=== PATIENT | male | born 1970 | race Hispanic/Latino ===

== ENCOUNTER 2018-11-15 05:55 | Emergency (ER) | payer OTHER ==
[~2018-11-15] VITALS: Ht 167.6 cm; Wt 100.0 kg
[~2018-11-15 05:55] MED LIST: NO HOME MEDS; TRAMADOL HCL50 MG OR
[2018-11-15 06:26] LABS: HEMATOCRIT 45.4 % (39.0-50.0); HEMOGLOBIN 15.4 g/dl (14.0-18.0); IMMATURE GRANULOCYTES 0.5 % (0.0-5.0); MEAN CELL VOLUME 89.2 fL CALC (80.0-100.0); MEAN CORPUSCULAR HGB 30.3 pG CALC (26.0-32.0); MEAN CORPUSCULAR HGB CONC 33.9 g/L CALC (32.0-36.0); NEUT# 2.96 thou/uL (1.82-7.42); RED BLOOD COUNT 5.09 mill/uL (4.70-6.10); RED CELL DISTRI WIDTH 13.3 % (11.5-15.5)
[2018-11-15 06:40] LABS: ALBUMIN 4.5 g/dL (3.2-5.0); ALKALINE PHOSPHATASE 95 u/l (38-126); ANION GAP 16 (6-22 (CALC)); BILIRUBIN, TOTAL 0.8 mg/dL (0.0-1.4); BUN 13 mg/dL (9-20); BUN/CREATININE RATIO 14 (12-20 (CALC)); CARBON DIOXIDE 24 mmol/l (22-30); CHLORIDE 105 mmol/l (95-108); CREATININE 0.9 mg/dL (0.7-1.3); GFR > 60 ML/MIN (>=60 (CALC)); GFR FOR AFR.AMER. > 60 ML/MIN (>=60 (CALC)); SGOT/AST 53 u/l (17-59); SODIUM 140 mmol/l (137-146); TOTAL PROTEIN 7.9 g/dL (6.3-8.2)
[2018-11-15 06:45] LABS: POTASSIUM 5.1 mmol/l (3.5-5.1)
[2018-11-15 08:10] LABS: URINE BILIRUBIN - DIPSTICK NEGATIVE (NEGATIVE); URINE BLOOD DIPSTICK LARGE (NEGATIVE); URINE COLOR YELLOW; URINE GLUCOSE - DIPSTICK NEGATIVE (NEGATIVE); URINE KETONE NEGATIVE (NEGATIVE); URINE LEUK ESTERASE NEGATIVE (NEGATIVE); URINE NITRITE - DIPSTICK NEGATIVE (Negative); URINE PROTEIN - DIPSTICK NEGATIVE (NEG-TRACE); URINE UROBILINOGEN - DIPSTICK 0.2 E.U./dL (0.2)
[2018-11-15 08:17] LABS: URINE WBC 0-2 WBC/hpf (0-5)
[2018-11-15] MEDS ORDERED: HYDROCO/APAP1 TA9 PO (08:24)
[2018-11-15] MEDS ORDERED: CEPHALEXIN500 M1 PO (08:24)
[2018-11-15] MEDS ORDERED: ONDANSETRON4 MG PO (08:24)
[2018-11-15 09:01] VITALS: BP 145/77
== END 2018-11-15 09:01 | disposition home or self-care (01) | DRG 694 ==
LOC: ED 05:55
PROVIDERS: Family Medicine
DX: N13.2 Hydronephrosis with renal and ureteral calculous obstruction (principal); Z87.442 Personal history of urinary calculi

== ENCOUNTER 2020-10-28 20:37 | Emergency (ER) | payer OTHER ==
[~2020-10-28] VITALS: Ht 167.6 cm; Wt 90.0 kg
[~2020-10-28 20:37] MED LIST changes: +CEPHALEXIN500 M1 PO; +HYDROCO/APAP1 TA9 PO; +ONDANSETRON4 MG PO
[2020-10-29 00:10] LABS: HEMATOCRIT 47.6 % (39.0-50.0); HEMOGLOBIN 15.9 g/dl (14.0-18.0); IMMATURE GRANULOCYTES 0.2 % (0.0-5.0); MEAN CORPUSCULAR HGB 30.1 pG CALC (26.0-32.0); MEAN CORPUSCULAR HGB CONC 33.4 g/dL CAL (32.0-36.0); NEUT# 3.42 thou/uL (1.82-7.42); RED BLOOD COUNT 5.29 mill/uL (4.70-6.10); RED CELL DISTRI WIDTH 12.4 % (11.5-15.5)
[2020-10-29 00:26] LABS: D-DIMER 0.54 mg/L (0.19-0.60)
[2020-10-29 00:29] LABS: ALBUMIN 3.9 g/dL (3.2-5.0); ALKALINE PHOSPHATASE 72 u/l (38-126); BUN 13 mg/dL (9-20); BUN/CREATININE RATIO 16 (12-20 (CALC)); CARBON DIOXIDE 27 mmol/l (22-30); CHLORIDE 95 mmol/l (95-108); CREATININE 0.9 mg/dL (0.7-1.3); GFR > 60 ML/MIN (>=60 (CALC)); GFR FOR AFR.AMER. > 60 ML/MIN (>=60 (CALC)); POTASSIUM 4.7 mmol/l (3.5-5.1); SGOT/AST 42 u/l (17-59); TOTAL PROTEIN 7.3 g/dL (6.3-8.2)
[2020-10-29 00:31] LABS: ANION GAP 13 (6-22 (CALC)); BILIRUBIN, TOTAL 0.3 mg/dL (0.0-1.4); SODIUM 130 mmol/l (137-146)
[2020-10-29 00:34] LABS: ACT PARTIAL THROMBO TIME 30.8 SECONDS (20.0-32.5); INTERNATIONAL NORMALIZED RATIO 1.1 RATIO (0.7-1.3); PROTHROMBIN TIME 11.3 SECONDS (9.0-12.5)
[2020-10-29 00:43] LABS: MYOGLOBIN 28 ng/mL (0 - 121)
[2020-10-29 02:42] VITALS: BP 112/70
== END 2020-10-29 04:28 | disposition home or self-care (01) | DRG 179 ==
LOC: ED 20:37
PROVIDERS: Family Medicine
DX: U07.1 COVID-19 (principal)

== ENCOUNTER 2020-10-30 09:12 | Inpatient (IN) | payer OTHER ==
[~2020-10-30] VITALS: Ht 167.6 cm; Wt 93.0 kg
--- NOTE | 2020-10-30 09:15 | NUR ---
TO ROOM VIA WHEELCHAIR
[2020-10-30 10:15] LABS: HEMATOCRIT 47.5 % (39.0-50.0); HEMOGLOBIN 15.9 g/dl (14.0-18.0); IMMATURE GRANULOCYTES 0.2 % (0.0-5.0); MEAN CELL VOLUME 89.8 fL CALC (80.0-100.0); MEAN CORPUSCULAR HGB 30.1 pG CALC (26.0-32.0); MEAN CORPUSCULAR HGB CONC 33.5 g/dL CAL (32.0-36.0); NEUT# 3.83 thou/uL (1.82-7.42); RED BLOOD COUNT 5.29 mill/uL (4.70-6.10); RED CELL DISTRI WIDTH 12.7 % (11.5-15.5)
[2020-10-30 10:34] LABS: ALBUMIN 3.7 g/dL (3.2-5.0); ALKALINE PHOSPHATASE 79 u/l (38-126); ANION GAP 11 (6-22 (CALC)); BILIRUBIN, TOTAL 0.3 mg/dL (0.0-1.4); BUN 18 mg/dL (9-20); BUN/CREATININE RATIO 20 (12-20 (CALC)); CARBON DIOXIDE 28 mmol/l (22-30); CHLORIDE 96 mmol/l (95-108); CREATININE 0.9 mg/dL (0.7-1.3); GFR > 60 ML/MIN (>=60 (CALC)); GFR FOR AFR.AMER. > 60 ML/MIN (>=60 (CALC)); POTASSIUM 4.2 mmol/l (3.5-5.1); SGOT/AST 45 u/l (17-59); SODIUM 131 mmol/l (137-146); TOTAL PROTEIN 7.1 g/dL (6.3-8.2)
--- NOTE | 2020-10-30 12:18 | NUR ---
MD AT BEDSIDE TO DISCUSS RESULTS AND POC.
--- NOTE | 2020-10-30 12:50 | NUR ---
RESTING QUIETLY, DENIES NEEDS AT THIS TIME.
--- NOTE | 2020-10-30 15:13 | NUR ---
REPORT GIVEN TO SKIP MARTINEZ
[2020-10-30 18:00] VITALS: BP 117/67
[2020-10-30 19:00] VITALS: BP 142/67
[2020-10-30 20:00] VITALS: BP 113/70
[2020-10-30 21:00] VITALS: BP 106/67
--- NOTE | 2020-10-30 21:45 | NUR ---
PT ADMITTED TO MEDICAL SURGICAL ER OVERFLOW. ASSESSMENTS COMPLETED, PLEASE SEE DOCUMENTATION. BREATHING EVEN AND UNLABORED. NO COMPLAINTS VOICED AT THIS TIME. SAFETY PRECAUTIONS IN PLACE, BED IN LOW POSITION, CALL LIGHT WITHIN REACH. WILL MONITOR
[2020-10-30 22:00] VITALS: BP 101/64
[2020-10-30 22:24] VITALS: BP 101/64
--- NOTE | 2020-10-30 22:50 | NUR ---
PT RESTING IN BED AT THIS TIME. BREATHING EVEN AND UNLABORED. ADMISSION ASSESSMENTS TO MEDICAL SURGICAL OVERFLOW COMPLETED. PLEASE SEE DOCUMENATTION. NO COMPLAINTS VOICED AT THIS TIME. PT DENIES PAIN. SAFETY PRECAUTIONS IN PLACE, BED IN LOW POSITION AND CALL LIGHT WITHIN REACH. PT TO BE MOVED TO THE MED SURG UNIT ONCE THERE IS AN AVAILABLE BED. WILL CONTINUE TO MONITOR
[2020-10-31] VITALS (10 sets, daily range): BP systolic 12–123; BP diastolic 51–71
--- NOTE | 2020-10-31 06:22 | NUR ---
ABG RESULTS REVIEWED AND DISCUSSED WITH Rachid TOM ARTS AND CRAFTS TEACHER. PT'S PO2 AND SPO2 LOW. NO RESPIRATORY DISTRESS. OXYGEN INCREASED TO 15L/MIN VIA HIGH FLOW NC. RESULTS IN SP02 AT 92%.
--- NOTE | 2020-10-31 07:45 | NUR ---
PATIENT LAYING IN BED AT THIS TIME. POTABLE WATER TREATMENT OPERATOR DONE AT THIS TIME SEE INTEVENTIONS. PATIENT IS ON 15L HIGH FLOW AND SPO2 IS 90%. PATIENT DENIES ANY NEEDS AT THIS TIME. SIDERRAILS ARE UP CALL LIGHT WITHIN REACH. TELE ON AND BEING MONITORED BY ED. LUNG FINNEY ARE DIMINISHED IN MIDDLE AND LOWER FINNEY. SIDERAILS ARE UP CALL LIGHT WITHIN REACH.
[2020-10-31 08:11] LABS: HEMATOCRIT 46.8 % (39.0-50.0); HEMOGLOBIN 15.4 g/dl (14.0-18.0); IMMATURE GRANULOCYTES 0.3 % (0.0-5.0); MEAN CELL VOLUME 91.6 fL CALC (80.0-100.0); MEAN CORPUSCULAR HGB 30.1 pG CALC (26.0-32.0); MEAN CORPUSCULAR HGB CONC 32.9 g/dL CAL (32.0-36.0); NEUT# 2.03 thou/uL (1.82-7.42); RED BLOOD COUNT 5.11 mill/uL (4.70-6.10); RED CELL DISTRI WIDTH 12.6 % (11.5-15.5)
[2020-10-31 09:02] LABS: ALBUMIN 3.3 g/dL (3.2-5.0); ALKALINE PHOSPHATASE 72 u/l (38-126); ANION GAP 13 (6-22 (CALC)); BILIRUBIN, TOTAL 0.3 mg/dL (0.0-1.4); BUN 23 mg/dL (9-20); BUN/CREATININE RATIO 33 (12-20 (CALC)); CARBON DIOXIDE 25 mmol/l (22-30); CHLORIDE 100 mmol/l (95-108); CREATININE 0.7 mg/dL (0.7-1.3); GFR > 60 ML/MIN (>=60 (CALC)); GFR FOR AFR.AMER. > 60 ML/MIN (>=60 (CALC)); POTASSIUM 4.7 mmol/l (3.5-5.1); SGOT/AST 39 u/l (17-59); SODIUM 134 mmol/l (137-146); TOTAL PROTEIN 6.3 g/dL (6.3-8.2)
[2020-10-31 09:29] LABS: C-REACTIVE PROTEIN 14.1 mg/dL (0-0.9)
--- NOTE | 2020-10-31 09:48 | NUR ---
PT CONSENTED TO PNEUMONIA [facility], BUT DOES NOT MEET CRITERIA TO RECEIVE BELOW AGE 65 BASED ON COMORBIDITIES.
--- NOTE | 2020-10-31 12:05 | NUR ---
PATIENT RESTING IN BED AT THIS TIME. SIDERAILS ARE UP CALL LIGHT WITHIN REACH. PATIENT DENIES ANY PAIN AT THIS TIME. PATIENT REMAINS ON 02 AT 15L HI-FLOW PATIENTS SPO2 IS 91% AT THIS TIME. TELE MONITOR ON AND MONITORED BY ED. SIDERAILS ARE UP CALL LIGHT WITHIN REACH.
--- NOTE | 2020-10-31 15:51 | NUR ---
PATIENT IN BED DENIES ANY PAIN. 02 ON AT 15LITERS HI-FLOW AND SPO2 IS 91% AT THIS TIME. SIDERAILS ARE UP CALL LIGHT IS WITHIN REACH TELE ON AND BEING MONITORED BY ED. PATIENT WILL CONTINUE TO BE MONITORED.
--- NOTE | 2020-10-31 19:11 | NUR ---
RECEIVED REPORT FROM DAY SHIFT RN. IN ROOM INTRODUCED SELF TO PT. NO C/O.
--- NOTE | 2020-10-31 19:24 | NUR ---
RICARDO CALLED TO SHEBA SKINNER.
--- NOTE | 2020-10-31 19:25 | NUR ---
PT. TAKEN TO [facility] VIA W/C.
--- NOTE | 2020-10-31 19:35 | NUR ---
PT. TAKEN TO MS FLOOR, NO C/O.
--- NOTE | 2020-10-31 19:35 | NUR ---
PT ARRIVES TO UNIT VIA WC, ACCOMPANIED BY CARMINA SKINNER. ADMITTED TO ROOM 265.
--- NOTE | 2020-10-31 21:25 | NUR ---
02 15L/MIN VIA HIGH FLOW NC. SP02 93% AT REST. SPO2 DROPS TO 89% WITH CONVERSATION. RESPIRATIONS REGULAR AND UNLABORED AT REST. SOB WITH MINIMAL EXERTION. NON-PRODUCTIVE COUGH. PT AGREES TO REPORT RESPIRATORY DISTRESS IMMEDIATELY. PULMONARY HYGIENE EDUCATION REVIEWED. PRONING ENCOURAGED. SEE E-MAR FOR MEDICATION ADMINISTRATION DETAILS. MEDICATION EDUCATION PROVIDED. L-AC #20 G PATENT AND SALINE LOCKED. PT DENIES FURTHER NEEDS AT THIS TIME. PERSONAL ITEMS AND CALL BONILLA WITHIN REACH. AGREES TO CALL PRN. BED LOCKED IN LOW POSITION WITH BEDRAILS UP X2. COVID-19 ISOLATION MAINTAINED.
[2020-11-01] VITALS (7 sets, daily range): BP systolic 110–120; BP diastolic 53–73
--- NOTE | 2020-11-01 00:35 | NUR ---
PT AWAKE AND RESTING IN BED SEMIFOWLERS. RESPIRATIONS REGULAR/UNLABORED. SPO2 92%. DENIES NEEDS AT THIS TIME. CALL BONILLA WITHIN REACH, AGREES TO CALL PRN.
--- NOTE | 2020-11-01 04:45 | NUR ---
Fer KELSEY FIELD HANDYMAN REPORTS PTS SPO2 DOES NOT READ >93%. SP02 SPOT CHECK IS 87%, PT DOES NOT FEEL SOB OR IN DISTRESS AT REST. REQUESTED PT PRONE. PT AGREES. PT ASSISTED TO PRONE. SPO2 SLOWLY INCREASES TO 93% AND MAINTAINS BETWEEN 92-93%. PT AGREES TO REMAIN PRONE FOR LONG HE CAN TOLERATE. CALL BONILLA REMAINS WITHIN REACH. AGREES TO CALL PRN. DISCUSSED CASE WITH Nelson RICO PLANT SPRAYER.
[2020-11-01 06:26] LABS: HEMATOCRIT 45.8 % (39.0-50.0); HEMOGLOBIN 15.4 g/dl (14.0-18.0); IMMATURE GRANULOCYTES 0.2 % (0.0-5.0); MEAN CELL VOLUME 90.5 fL CALC (80.0-100.0); MEAN CORPUSCULAR HGB 30.4 pG CALC (26.0-32.0); MEAN CORPUSCULAR HGB CONC 33.6 g/dL CAL (32.0-36.0); NEUT# 7.69 thou/uL (1.82-7.42); RED BLOOD COUNT 5.06 mill/uL (4.70-6.10); RED CELL DISTRI WIDTH 12.5 % (11.5-15.5)
[2020-11-01 06:51] LABS: ALKALINE PHOSPHATASE 68 u/l (38-126); ANION GAP 13 (6-22 (CALC)); BILIRUBIN, TOTAL 0.2 mg/dL (0.0-1.4); CARBON DIOXIDE 25 mmol/l (22-30); CHLORIDE 103 mmol/l (95-108); CREATININE 0.7 mg/dL (0.7-1.3); GFR > 60 ML/MIN (>=60 (CALC)); GFR FOR AFR.AMER. > 60 ML/MIN (>=60 (CALC)); POTASSIUM 4.7 mmol/l (3.5-5.1); SGOT/AST 36 u/l (17-59); SODIUM 135 mmol/l (137-146); TOTAL PROTEIN 5.8 g/dL (6.3-8.2)
[2020-11-01 07:07] LABS: BUN 25 mg/dL (9-20); BUN/CREATININE RATIO 36 (12-20 (CALC))
--- NOTE | 2020-11-01 07:14 | NUR ---
REPORT REC FROM Lia GARRIDO RN
--- NOTE | 2020-11-01 08:27 | NUR ---
PT A&O X4. UPON ENTERING ROOM, O2 VIA NC HF @15L IN PLACE CURRENTLY SUSTAINING 87-88%. HUMIDIFICATION ADDED TO HF O2. PT ENCOURAGED TO PRONE. PT PRONING AT THIS TIME, O2 NOW 90%, Misbah GONZALEZ APRN NOTIFIED, O2 TO BE CLOSELY MONITORED. PT APPEARING SLIGHTLY ANXIOUS; VERBAL QUES GIVEN; PT WELL RECEPTIVE TO QUES. CLEAR/DIMINISHED BREATH SOUNDS UPON AUSCULTATION. ACTIVE BOWEL SOUNDS X4 QUADRANTS. #20G LAC HEALTHY AND PATENT. EMAIL OPERATIONS MANAGER IN PLACE. ASSESSMENT COMPLETED. DISCUSSED POC. CALL LIGHT WITHIN REACH, ISOLATION PREACUTIONS IN PLACE; PT EDUCATED ON THE NEED FOR THESE PRECAUTIONS.
--- NOTE | 2020-11-01 09:00 | NUR ---
IS DEVICE GIVEN TO PT. PT EDUCATED ON THE PROPER USE OF DEVICE. O2 VIA NC HF @15L, O2 NOW 93% NOT IN PRONE POSITION. PT ENCOURAGED TO USE DEVICE Q1 HOUR WHILE AWAKE X10 REPITITIONS. PT PROPERLY USING IS DEVICE CURRENTLY ACHIEVING 750 ML, GOAL SET AT 1000 ML. NO OTHER NEEDS AT THIS TIME.
--- NOTE | 2020-11-01 12:20 | NUR ---
PT SITTING IN BED, O2 VIA NC HF @15L REMAINS. O2 SUSTAINING 92%. CALL LIGHT WITHIN REACH.
--- NOTE | 2020-11-01 18:03 | NUR ---
PT SITTING IN BED EATING DINNER. NO OTHER NEEDS AT THIS TIME. CALL LIGHT WITHIN REACH.
[2020-11-02] VITALS (9 sets, daily range): BP systolic 95–140; BP diastolic 53–84
--- NOTE | 2020-11-02 03:43 | NUR ---
PATIENT AWAKE AND ALERT NO CONCERNS OR CONCERNS AT THIS TIME
[2020-11-02 06:17] LABS: HEMATOCRIT 46.6 % (39.0-50.0); HEMOGLOBIN 15.3 g/dl (14.0-18.0); IMMATURE GRANULOCYTES 0.8 % (0.0-5.0); MEAN CELL VOLUME 92.3 fL CALC (80.0-100.0); MEAN CORPUSCULAR HGB 30.3 pG CALC (26.0-32.0); MEAN CORPUSCULAR HGB CONC 32.8 g/dL CAL (32.0-36.0); NEUT# 10.65 thou/uL (1.82-7.42); RED BLOOD COUNT 5.05 mill/uL (4.70-6.10); RED CELL DISTRI WIDTH 12.7 % (11.5-15.5)
--- NOTE | 2020-11-02 06:45 | NUR ---
REPORT RECEIVED FROM ADRYAN SKINNER. CARE ASSUMED.
[2020-11-02 07:02] LABS: ALBUMIN 3.1 g/dL (3.2-5.0); ALKALINE PHOSPHATASE 65 u/l (38-126); ANION GAP 12 (6-22 (CALC)); BUN 20 mg/dL (9-20); BUN/CREATININE RATIO 25 (12-20 (CALC)); C-REACTIVE PROTEIN 3.4 mg/dL (0-0.9); CARBON DIOXIDE 26 mmol/l (22-30); CHLORIDE 105 mmol/l (95-108); CREATININE 0.8 mg/dL (0.7-1.3); GFR > 60 ML/MIN (>=60 (CALC)); GFR FOR AFR.AMER. > 60 ML/MIN (>=60 (CALC)); POTASSIUM 4.9 mmol/l (3.5-5.1); SGOT/AST 37 u/l (17-59); SODIUM 138 mmol/l (137-146); TOTAL PROTEIN 5.9 g/dL (6.3-8.2)
[2020-11-02 07:05] LABS: BILIRUBIN, TOTAL 0.3 mg/dL (0.0-1.4)
--- NOTE | 2020-11-02 07:30 | NUR ---
PATIENT RESTING IN BED IN BED WATCHING TV. PT IS ALERT AND ORIENTED X3. SHIFT ASSESSMENT COMPLETED AT THIS TIME. IV PATENT X1. O2 SATS 82%. PATIENT PRONED AT THIS TIME. O2 SATS INCREASED TO 92-93%. CALL LIGHT IN REACH. Misbah GONZALEZ APRN NOTIFIED OF SATS.
--- NOTE | 2020-11-02 12:30 | NUR ---
PATIENT RESTING IN BED AT THIS TIME NOT TOLERATING PRONE POSITION. SATS 88% ON 15L HF NC. Misbah GONZALEZ APRN NOTIFIED. ORDERS RECEIVED FOR VAPOTHERM. RT NOTIFIED.
--- NOTE | 2020-11-02 13:00 | NUR ---
RT AT BEDSIDE TO PLACE PATIENT ON VAPOTHERM. AWAITING TRANSFER TO ICU.
--- NOTE | 2020-11-02 14:30 | NUR ---
REPORT CALLED TO [facility].
--- NOTE | 2020-11-02 14:40 | NUR ---
PATIENT WAS TRANSFERRED FROM [facility] ROOM 265 NOW IS ICU BED 4.
--- NOTE | 2020-11-02 14:45 | NUR ---
PATIENT TO ICU VIA BED ON NRB. PATIENT TOLERATED TRANSFER WELL.
--- NOTE | 2020-11-02 15:00 | NUR ---
PATIENT IS A/O X3, ABLE TO MAKE NEEDS KNOWN TO STAFF. STATES HE HAS NO PAIN AT THIS TIME. NOT SHORT OF BREATHE AT THIS TIME. USING VAPOTHERM, SATS 96% ON 20L 60%. CLEAR LUNG SOUNDS, BOTTOM LUNGS ARE SLIGHTLY DIMINISHED. ACTIVE BOWEL SOUNDS. STATED HE HAD A BOWEL MOVEMENT YESTERDAY MORNING. HE WILL LET ME KNOW IF HE NEEDS TO USE THE BATHROOM. SOFT NON DISTENDED ABDOEMN. EDUCATION ON I.S, STATED YESTERDAY HE GOT UP TO 750, WHEN DEMOSTRATED HE GOT UP TO 500 THEN GOT SOB. NO EDEMA PRESENT AT THIS TIME. STRONG PULSES. EQUAL HAND MISSILE FACILITIES REPAIRER, NO DRIFT NOTED. SAFETY MEASURES IN PLACE. CALL LIGHT AND PERSONAL BELONGINGS IN REACH. WILL CONTINUE TO MONITOR.
--- NOTE | 2020-11-02 16:00 | NUR ---
PATIENT TURNED HIMSELF AROUND, LAYING PRONE.
--- NOTE | 2020-11-02 16:30 | NUR ---
pt salima hhfnc well at this time.
--- NOTE | 2020-11-02 18:00 | NUR ---
PATIENT IS IN SITTING UP IN BED EATING HIS FRUIT, DINNER ON SIDE TABLE. SAFETY MEASURES IN PLACE. CALL LIGHT IN REACH. WILL CONTINUE TO MONITOR.
--- NOTE | 2020-11-02 19:45 | NUR ---
RESTING IN BED ON ROUNDS. ALERT AND ORIENTED. RESP NON-LABORED AT REST. PATIENT ON VAPOTHERM 2OL/60% O2 SAT 89-92% BREATH SOUNDS CLEAR IN UPPER LOBES, DIMINISHED IN BILATERAL BASES. NON-PRODUCTIVE COUGH PRESENT. VOIDS IN URINAL. SALINE LOCK INTACT IN LAC, SITE BENIGN. YARN TEXTURE MACHINE OPERATOR SHOWS SB-SR.SHIFT ASSESSMENT COMPLETED. DISCUSSED PLAN OF CARE AND IMPORTANCE OF PRONING. PATIENT STATES NOT NOW BUT HE WILL ATTEMPT PRONING LATER. CALL IN REACH.
--- NOTE | 2020-11-02 22:00 | NUR ---
RESTING WITH EYES CLOSED. RESP NON-LABORED AT REST. VSS. SB ON MONITOR.
--- NOTE | 2020-11-02 22:45 | NUR ---
PATIENT O2 SAT 88% PATIENT TURNED TO PRONE POSITIONE WITH MUCH ENCOURAGEMENT. O2 SAT INCREASED TO 92-95% ENCOURGAED TO PRONE MUCH POSSIBLE.
[2020-11-03] VITALS (22 sets, daily range): BP systolic 82–119; BP diastolic 46–72
--- NOTE | 2020-11-03 | NUR ---
PATIENT CONTINUES TO REST IN PRONE POSITION. RESP NON-LABORED AT REST. REMAINS ON VAPOTHERM. SB ON MONITOR.
--- NOTE | 2020-11-03 00:45 | NUR ---
PATIENT TURNED ONTO BACK. USED URINAL, VOIDS LARGE AMOUNT CLEAR CAMELIA URINE O2 SAT DROPPED TO 85% ASSISTED PATIENT TO TURN BACK TO PRONE POSITON, SAT IMMEDIATELY INCREASED TO 98%
--- NOTE | 2020-11-03 02:17 | NUR ---
PATIENT RESTING IN PRONE POSITION. VSS. O2 SAT 97%
--- NOTE | 2020-11-03 03:45 | NUR ---
CONTINUES TO REST IN PRONE POSITION. MAINTAINING O2 SATS GREATER THAN 92% RESP NON-LABORED AT REST. VAPOTHERM REMAINS IN PLACE SAME SETTINGS. MONITOR SB.
--- NOTE | 2020-11-03 05:00 | NUR ---
IV SITE IN RAC OUTDATED, DC'D WITH CATHETER INTACT. NEW IV SITE STARTED IN RFA #22 X1 ATTMEPT. BLOOD DRAWN FOR AM LABS.
[2020-11-03 05:40] LABS: HEMATOCRIT 45.5 % (39.0-50.0); HEMOGLOBIN 15.2 g/dl (14.0-18.0); IMMATURE GRANULOCYTES 2.3 % (0.0-5.0); MEAN CELL VOLUME 90.5 fL CALC (80.0-100.0); MEAN CORPUSCULAR HGB 30.2 pG CALC (26.0-32.0); MEAN CORPUSCULAR HGB CONC 33.4 g/dL CAL (32.0-36.0); NEUT# 6.73 thou/uL (1.82-7.42); RED BLOOD COUNT 5.03 mill/uL (4.70-6.10); RED CELL DISTRI WIDTH 12.7 % (11.5-15.5)
--- NOTE | 2020-11-03 05:58 | NUR ---
O2 SAT 88-91% IN SUPINE POSITION. CONTINUES ON VAPOTHERM, RT INCREASED TO 25 L/65 % SLEPT FOR LONG INTERVALS. PATIENT RESTED IN PRONE POSITION MOST OF THE NIGHT. VSS. SB ON MONITOR.
[2020-11-03 06:59] LABS: ALBUMIN 2.9 g/dL (3.2-5.0); ALKALINE PHOSPHATASE 62 u/l (38-126); ANION GAP 11 (6-22 (CALC)); BUN 20 mg/dL (9-20); BUN/CREATININE RATIO 23 (12-20 (CALC)); C-REACTIVE PROTEIN 5.4 mg/dL (0-0.9); CARBON DIOXIDE 26 mmol/l (22-30); CHLORIDE 104 mmol/l (95-108); CREATININE 0.9 mg/dL (0.7-1.3); GFR > 60 ML/MIN (>=60 (CALC)); GFR FOR AFR.AMER. > 60 ML/MIN (>=60 (CALC)); POTASSIUM 4.7 mmol/l (3.5-5.1); SGOT/AST 46 u/l (17-59); SODIUM 136 mmol/l (137-146); TOTAL PROTEIN 5.6 g/dL (6.3-8.2)
[2020-11-03 07:00] LABS: BILIRUBIN, TOTAL 0.5 mg/dL (0.0-1.4)
--- NOTE | 2020-11-03 08:20 | NUR ---
PATIENT IS A/O X3, ABLE TO MAKE NEEDS KNOWN TO STAFF. DENIES PAIN OR DISCOMFORT AT THIS TIME. 3MM PERRLA BRISK BILAT EYES. CONTINUES TO USE VAPOTHERM AND DOING WELL O2 SATS 93% SITING UP. HAS BREAKFAST ON HIS SIDE TABLE. CLEAR TO DIMINISHED LUNG SOUNDS. ACTIVE BOWEL SOUNDS. SOFT NON DISTENDED ABDOMEN. STRONG PULSES. NO EDEMA PRESENT AT THIS TIME. SAFETY MEASURES IN PLACE. CALL LIGHT IN REACH. WILL CONTINUE TO MONITOR.
--- NOTE | 2020-11-03 09:52 | NUR ---
TITRATE PARAMETERS PER PT SPO2. ASSEMBLER WIRE GROUP TO MONITOR.
--- NOTE | 2020-11-03 12:02 | NUR ---
SITTING UP EATING LUNCH.
--- NOTE | 2020-11-03 13:08 | NUR ---
TITRATED PARAMETERS PER PT SPO2. GEORGES WELL AT THIS TIME. PSYCHOMETRIC EXAMINER TO MONITOR.
--- NOTE | 2020-11-03 15:07 | NUR ---
PT RESTING COMFORTABLY IN BED. NAD. "THUMBS UP" GIVEN TO REWRITER TO INDICATE HE IS FEELING OKAY.
--- NOTE | 2020-11-03 16:00 | NUR ---
PATIENT IS PRONE SATS ARE UP TO 99%.
--- NOTE | 2020-11-03 18:00 | NUR ---
PATIENT IS SITTING UP IN BED WATCHING TV
--- NOTE | 2020-11-03 20:10 | NUR ---
RESTING IN BED WATCHING TV. RESP NON-LABORED AT REST. ON VAPOTHERM 25 L/75% O2 SAT 94% BREATH SOUNDS CLEAR IN UPPER LOBES, DIMINISHED IN BILATERAL BASES. SALINE LOCK IN PLACE IN LFA, SITE BENIGN. SHIFT ASSESSMENT COMPLETED. TIRE REBUILDER SHOWS SB-SR. DISCUSSED PLAN OF CARE. REMINDED OF IMPORTANCE OF RESTING IN PRONE POSITION. PATIENT STATES HE WILL PRONE WHEN IS REITRES FOR THE NIGHT. CALL BONILLA IN REACH.
--- NOTE | 2020-11-03 22:00 | NUR ---
RESTING QUIETLY IN BED WITH EYES CLOSED. O2 SAT 95% PATIENT RESTING IN SUPINE POSITION AT THIS TIME.
[2020-11-04] VITALS (21 sets, daily range): BP systolic 100–124; BP diastolic 58–83
--- NOTE | 2020-11-04 | NUR ---
SLEEPING. O2 SAT 93% MONITOR SR.
--- NOTE | 2020-11-04 03:04 | NUR ---
NO CHANGES TO REPORT. VSS. SB ON MONITOR.
--- NOTE | 2020-11-04 04:00 | NUR ---
SLEEPING SOUNDLY. VSS. O2 SAT MAINTAINING GREATER THAN 93% SB ON MONITOR.
[2020-11-04 05:16] LABS: HEMATOCRIT 45.1 % (39.0-50.0); HEMOGLOBIN 15.2 g/dl (14.0-18.0); MEAN CELL VOLUME 89.3 fL CALC (80.0-100.0); MEAN CORPUSCULAR HGB 30.1 pG CALC (26.0-32.0); MEAN CORPUSCULAR HGB CONC 33.7 g/dL CAL (32.0-36.0); RED BLOOD COUNT 5.05 mill/uL (4.70-6.10); RED CELL DISTRI WIDTH 12.3 % (11.5-15.5)
[2020-11-04 05:34] LABS: ANION GAP 13 (6-22 (CALC)); BUN 20 mg/dL (9-20); BUN/CREATININE RATIO 27 (12-20 (CALC)); CARBON DIOXIDE 23 mmol/l (22-30); CHLORIDE 103 mmol/l (95-108); CREATININE 0.7 mg/dL (0.7-1.3); GFR > 60 ML/MIN (>=60 (CALC)); GFR FOR AFR.AMER. > 60 ML/MIN (>=60 (CALC)); POTASSIUM 5.1 mmol/l (3.5-5.1); SODIUM 134 mmol/l (137-146)
--- NOTE | 2020-11-04 06:00 | NUR ---
NO CHANGES TO REPORT. SLEPT WELL. VSS.
--- NOTE | 2020-11-04 07:15 | NUR ---
ASSESSMENT DONE SEE INTERVENTIONS. LUNG FINNEY THROUGOUT ARE DIMINISHED, BREATH SOUNDS ARE CLEAR BUT SHALLOW. PATIENT HAS PRODUCTIVE COUGH THICK AND CLEAR AT THIS TIME. PATIENT ALIN ANY PAIN. VAPO-THERM ON AND SETTINGS ARE 25L/75% AND SPO2 IS 92% AT THIS TIME. PATIENT ADVISED OF PLAN TO GET UP IN CHAIR AFTER BREAKFAST AND PATIENT VERBALIZES AGREEMENT AND UNDERSTANDING OF PLANE. SIDERAILS ARE UP CALL LIGHT IS WITHIN REACH. PATIENT RESTING IN BED ALERT AND ORIENTED X4
--- NOTE | 2020-11-04 10:00 | NUR ---
PATIENT RESTING IN BED AT THIS TIME. VAPO-THERM SETTING ARE 25L/75% AND SPO2 IS 92% AT THIS TIME. PATIENT DENIES ANY PAIN AT THIS TIME. SIDERAILS ARE UP CALL LIGHT IS WITHIN REACH.
--- NOTE | 2020-11-04 12:00 | NUR ---
PATIENT LAYING IN BED AT THIS TIME. ALERT AND ORIENTED AT THIS TIME PATIENT EATING LUNCH AT THIS TIME. ANGELA PAIN REMAINS ON VAPO-THERM AT THIS TIME. HR IS SB56 SPO2 CURRENTLY IS 94%. SIDERAILS ARE UP X 2 CALL LIGHT WITHIN REACH. PATIENT STATES "I'M JUST TIRED TODAY". WILL CONTINUE TO MONITOR.
--- NOTE | 2020-11-04 14:00 | NUR ---
PATIENT REMAINS IN BED AT THIS TIME. PATIENT DENEIS ANY NEEDS AND OR PAIN. PATIENT REMAINS ON VAPO-THERM SETTINGS UNCHANGED. HR IS SB-56 BP IS 117/69. SIDERAILS ARE UP CALL LIGHT WITHIN REACH.
--- NOTE | 2020-11-04 15:31 | NUR ---
PATIENT ASSISTED TO RECLINER AT THIS TIME. PATIENT BED LINEN AND PATIENT GOWN CHANGED AT THIS TIME. PATIENT TOLERATED THE TRANSFER TO RECLINER WITHOUT INCIDENT. VAPO-THERM REMAINS ON AND SETTING UNCHANGED AT THIS TIME. CALL LIGHT IS WITHIN REACH.
--- NOTE | 2020-11-04 18:05 | NUR ---
PATIENT REMAINS UP IN CHAIR AT THIS TIME. VAPO-THERM REMAINS ON AND SETTINGS ARE 25L/75% AND SPO2 IS 95% AT THIS TIME. PATIENT DENEIS ANY NEEDS AND NO PAIN. PATIENT LEFT FOR NEXT SHIFT IN STABLE CONDITION. SENIOR ARCHITECT/DESIGN MANAGER READING AT THIS TIME IS: S/R AND HR IS 73 AND SPO2 IS 96%. CALL LIGHT IS WITHIN REACH AT THIS TIME.
--- NOTE | 2020-11-04 19:55 | NUR ---
PT SITTING IN RECLINER AT BEDSIDE WATCHING TV, NO SIGNS OF DISTRESS NOTED, RESP EVEN AND UNLABORED. PT ALERT AND ORIENTED X3, DISCUSSED POC, PT HAS VAPOTHERM AT 25L 75% FIO2 SATS 94%. DISCUSSED POC, PT VERBALIZED UNDERSTANDING. PT MEDICATED WITH LOVENOX SC AT THIS TIME. ASSESSMENT COMPLETED, PT VOIDED 500CC CLEAR YELLOW URINE IN URINAL. PT VOICES NO NEEDS OR COMPLAINTS AT THIS TIME. CALL LIGHT IN REACH, CONTINUE TO MONITOR.
[2020-11-05] VITALS (14 sets, daily range): BP systolic 83–122; BP diastolic 42–81
--- NOTE | 2020-11-05 | NUR ---
PT RESTING IN BED, WATCHING HIS PHONE, NO SIGNS OF DISTRESS NOTED, RESP EVEN AND UNLABORED, VAPOTHERM 25L, 75% FIO2 SATS 94%, PT VOICES NO NEEDS OR COMPLAINTS AT THIS TIME, CALL LIGHT IN REACH,CONTINUE TO MONITOR.
--- NOTE | 2020-11-05 04:00 | NUR ---
PT RESTING IN BED WITH EYES CLOSED, NO SIGNS OF DISTRESS NOTED, RESP EVEN AND UNLABORED. VSS, CALL LIGHT IN REACH,CONTINUE TO MONITOR.
[2020-11-05 05:51] LABS: HEMATOCRIT 45.4 % (39.0-50.0); HEMOGLOBIN 15.4 g/dl (14.0-18.0); IMMATURE GRANULOCYTES 4.2 % (0.0-5.0); MEAN CELL VOLUME 88.8 fL CALC (80.0-100.0); MEAN CORPUSCULAR HGB 30.1 pG CALC (26.0-32.0); MEAN CORPUSCULAR HGB CONC 33.9 g/dL CAL (32.0-36.0); NEUT# 9.03 thou/uL (1.82-7.42); RED BLOOD COUNT 5.11 mill/uL (4.70-6.10); RED CELL DISTRI WIDTH 12.4 % (11.5-15.5)
[2020-11-05 06:14] LABS: ALBUMIN 3.1 g/dL (3.2-5.0); ALKALINE PHOSPHATASE 64 u/l (38-126); ANION GAP 12 (6-22 (CALC)); BILIRUBIN, TOTAL 0.3 mg/dL (0.0-1.4); BUN 22 mg/dL (9-20); BUN/CREATININE RATIO 30 (12-20 (CALC)); C-REACTIVE PROTEIN 2.7 mg/dL (0-0.9); CARBON DIOXIDE 22 mmol/l (22-30); CHLORIDE 103 mmol/l (95-108); CREATININE 0.7 mg/dL (0.7-1.3); GFR > 60 ML/MIN (>=60 (CALC)); GFR FOR AFR.AMER. > 60 ML/MIN (>=60 (CALC)); POTASSIUM 4.9 mmol/l (3.5-5.1); SGOT/AST 23 u/l (17-59); SODIUM 132 mmol/l (137-146); TOTAL PROTEIN 6.1 g/dL (6.3-8.2)
--- NOTE | 2020-11-05 06:45 | NUR ---
REPORT RECEIVED FROM COMMUNITY RELATIONS MANAGER. CARE ASSUMED.
--- NOTE | 2020-11-05 07:45 | NUR ---
PATIENT RESTING IN BED AWAKE AND WATCHING TV, PATIENT IS ALERT AND ORIENTED X3. SHIFT ASSESSMENT COMPLETED AT THIS TIME. IV PATENT X1. SET UP FOR AM MEAL. CALL LIGHT IN REACH. WILL CONTINUE TO MONITOR.
--- NOTE | 2020-11-05 09:00 | NUR ---
DR ALBERTO AT BEDSIDE AT THIS TIME.
--- NOTE | 2020-11-05 10:00 | NUR ---
PATIENT SITTING UP IN BED WATCHING TV. RESP ARE EVEN AND UNLABORED. NO DISTRESS NOTED. CALL LIGHT IN REACH. WILL CONTINUE TO MONITOR.
--- NOTE | 2020-11-05 12:00 | NUR ---
PATIENT SITTING UP IN BED WATCHING TV. SET UP FOR NOON MEAL. VSS ON MONITOR. CALL LIGHT IN REACH. WILL CONTINUE TO MONITOR.
--- NOTE | 2020-11-05 14:00 | NUR ---
PATIENT SITTING UP IN BED WATCHING IPAS. VSS ON MONITOR. CALL LIGHT INR EACH. WILL CONTINUE TO MONITOR.
--- NOTE | 2020-11-05 16:00 | NUR ---
PATIENT SITTING UP IN BED ON PHONED. NO DISTRESS NOTED. VSS ON MONITOR. WILL CONTINUE TO MONITOR.
--- NOTE | 2020-11-05 18:00 | NUR ---
PATIENT SITTING UP IN BED WATCHING TV. RESP ARE EVEN AND UNLABORED. NO DISTRESS NOTED. CALL LIGHT IN REACH. WILL CONTINUE TO MONITOR.
--- NOTE | 2020-11-05 19:09 | NUR ---
REPORT RECEIVED FROM DAY SHIFT NURSE, ASSUMED CARE
--- NOTE | 2020-11-05 20:00 | NUR ---
PT SITTING UP IN BED, ASSESSMENTS COMPLETED, PLEASE SEE DOCUMENTATION. ABLE TO MAKE HIS NEEDS KNOWN. NO S/S OF DISTRESS AT THIS TIME. PT REMAINS ON 28L/75% VAPOTHERM O2 AT THIS TIME. VSS. SAFETY PRECAUTIONS REMAIN IN PLACE. WILL MONITOR
--- NOTE | 2020-11-05 22:00 | NUR ---
PT SITTING UP IN BED WATCHING A MOVIE ON HIS IPAD. NO COMPLAINTS VOICED AT THIS TIME. NO S/S OF DISTRESS NOTED. SAFETY PRECAUTIONS IN PLACE, WILL MONITOR
[2020-11-06] VITALS (17 sets, daily range): BP systolic 91–142; BP diastolic 45–82
--- NOTE | 2020-11-06 | NUR ---
PT RESTING COMFORTABLY WITH EYES CLOSED. NO COMPLAINTS VOICED. VS REMAIN STABLE. BREATHING EVEN AND UNLABORED, NO S/S OF DISTRESS. WILL MONITOR
--- NOTE | 2020-11-06 02:00 | NUR ---
PT RESTING QUIETLY AT THIS TIME. BREATHING EVEN AND UNLABORED. PT REMAINS IN VAPOTHERM 28L/75%. PT TOLERATING WELL. PT NOTED TO HAVE HYPOTENSION 91/45, PT IS ASYMPTOMACTIC FOR LOW BLOOD PRESSURE. WILL MONITOR
--- NOTE | 2020-11-06 04:00 | NUR ---
PT CONTINUES TO REST QUIETLY, PT CONTINUES TO HAVE A LOW BLOOD PRESSURE BUT REMAINS ASYMPTOMACTIC. PT CONTINUES ON VAPOTHERM 28L/75%, TOLERATING WELL. NO S/S OF DISTRESS NOTED, NO COMPLAINTS VOICED. WILL MONITOR
[2020-11-06 05:54] LABS: HEMATOCRIT 45.3 % (39.0-50.0); MEAN CELL VOLUME 90.2 fL CALC (80.0-100.0); MEAN CORPUSCULAR HGB 29.9 pG CALC (26.0-32.0); MEAN CORPUSCULAR HGB CONC 33.1 g/dL CAL (32.0-36.0); RED BLOOD COUNT 5.02 mill/uL (4.70-6.10); RED CELL DISTRI WIDTH 12.6 % (11.5-15.5)
--- NOTE | 2020-11-06 05:56 | NUR ---
PT REMAINS QUIETLY RESTING, LAB AT BEDSIDE APPROX. 30 MIN AGO. NO COMPLAINTS VOICED. VAPOTHERM CONTINUES ON THE SAME SETTINGS BEFORE. PT TOLERATING WELL. NO COMPLAINTS VOICED. 450ML OF URINE OUT THIS SHIFT. NO S/S OF DISTRESS. WILL MONITOR
[2020-11-06 05:58] LABS: ANION GAP 11 (6-22 (CALC)); BUN 19 mg/dL (9-20); BUN/CREATININE RATIO 28 (12-20 (CALC)); CARBON DIOXIDE 23 mmol/l (22-30); CHLORIDE 104 mmol/l (95-108); CREATININE 0.7 mg/dL (0.7-1.3); GFR > 60 ML/MIN (>=60 (CALC)); GFR FOR AFR.AMER. > 60 ML/MIN (>=60 (CALC)); POTASSIUM 4.6 mmol/l (3.5-5.1); SODIUM 133 mmol/l (137-146)
--- NOTE | 2020-11-06 07:36 | NUR ---
PATIENT RESTING IN BED AT THIS TIME. CUSTOMER LOYALTY REPRESENTATIVE DONE SEE INTERVENTIONS. PATIENT DENEIS ANY PAIN AND DOES EXHIBIT SHORTNESS OF BREATH UPON MOVEMENT. PATIENT LUNGS ARE CLEAR IN UPPER FINNEY AND DIMINISHED IN LOWER FINNEY. PATIENT REMAINS ON VAPO-THREM AT SETTINGS : 28L/75% PATIENT CURRENT SPO2 IS 94% AT THIS TIME. PATIENT DOES EXHIBIT COUGH AND MOIST SPUTUM NOTED CLEAR AT THIS TIME. SIDERAILS ARE UP X 2 CALL LIGHT IS WITHIN REACH.
--- NOTE | 2020-11-06 10:05 | NUR ---
PATIENT RESTING IN BED AT THIS IE. PATIENT REMAINS ON VAPO-THERM SETTINGS: 28L/75% AND SPO2 IS 92%. MACHINE BRUSH MAKER READING S/R HR OF 64. PATIENT DENEIS ANY PAIN OR NEEDS SIDERAILS ARE UP CALL LIGHT IS WITHIN REACH.
--- NOTE | 2020-11-06 12:15 | NUR ---
PATIENT IN BED AT THIS TIME PATIETN DENEIS ANY NEEDS SIDERAILS ARE UP X2 CALL LIGHT WITHIN REACH. PATIENT REMAINS ON VAPO-THERM AND SETTINGS REMAIN AT 28L//75% AND SPO2 IS CURRENTLY 94%. CARDIAC MONTIOR READING AT THIS TIME. HR/ST AT 68 WILL CONTINUE TO MONITOR.
--- NOTE | 2020-11-06 14:05 | NUR ---
PATIENT RESTING IN BED AT THIS TIME. DENEIS ANY NEEDS, PATIENT REMAINS ON VAPO-THERM AND SETTING ARE UNCHANGED SINCE LAST NOTE. SIDERAILS ARE UP CALL LIGHT IS WITHING REACH.
--- NOTE | 2020-11-06 15:58 | NUR ---
PATIENT RESTING IN BED AT THIS TIME. PATIENT REMAINS ON VAPO-THERM AND SETTINGS ARE 28L/75%. PATIENT DENIES ANY NEEDS AND OR SHORTNESS OF BREATH AT THIS TIME. PATIENT ALSO DENEIS ANY PAIN OR DISCOMFORT. SIDERAILS ARE UP CALL LIGHT IS WITHIN REACH. WILL CONTINUE TO MONITOR.
--- NOTE | 2020-11-06 19:00 | NUR ---
REPORT RECIVED FROM DAY SHIFT NURSE, ASSUMED CARE.
--- NOTE | 2020-11-06 20:00 | NUR ---
PT SITTING UP IN BED WATCHING HIS IPAD. NO COMPLAINTS VOICED AT THIS TIME. CONTINUES ON VAPOTHERM 28L/70%. DOING WELL AT THIS TIME. ASSESSMENTS COMPLETED, PLEASE SEE DOUMENTATION. SAFETY PRECAUTIONS REMAIN IN PLACE. NO S/S OF DISTRESS NOTED. WILL MONITOR
--- NOTE | 2020-11-06 22:00 | NUR ---
PT SITTING UP IN BED WATCHING HIS IPAD. O2 DECREASED TO 65% FROM 70%. PT IS TOLERATING WELL. NO COMPLAINTS VOICED. BREATHING EVEN AND UNLABORED. O2 SATURATIONS REMAIN WNL. NO S/S OF DISTRESS NOTED, WILL MONITOR
[2020-11-07] VITALS (21 sets, daily range): BP systolic 96–131; BP diastolic 43–74
--- NOTE | 2020-11-07 | NUR ---
PT UP IN BED WATCXHING A MOVIE. NO COMPLAINTS VOICED. HE IS DOING WELL WITH THE O2 DECREASE. BREATHING EVEN AND UNLABORED. NO S/S OF DISTRESS AT THIS TIME. SAFETY PRECAUTIONS REMAIN IN PLACE, WILL MONITOR
--- NOTE | 2020-11-07 02:00 | NUR ---
PT RESTING QUIETLY, PT HAS BEEN RUNNING BRADYCARDIC SINCE HE FELL ASLEEP, ASYPTOMATIC. NO COMPLAINTS VOICED. NO S/S OF DISTRESS. BREATHING EVEN AND UNLABORED. SAFETY PRECAUTIONS REMAIN IN PLACE. WILL MONITOR
--- NOTE | 2020-11-07 04:00 | NUR ---
PT RESTING WITH EYES CLOSED, ABLE APRIL MAKE NEEDS KNOWN. PT SPEAKS MOSTLY CROATIAN BUT HE DOES UNDERSTAND [place]EN[place] ENOUGH TO COMMUNICATE. NO CONCERNS VOICED AT THIS TIME. DENIES PAIN. WILL MONITOR
[2020-11-07 05:52] LABS: HEMATOCRIT 43.5 % (39.0-50.0); HEMOGLOBIN 14.6 g/dl (14.0-18.0); MEAN CELL VOLUME 90.6 fL CALC (80.0-100.0); MEAN CORPUSCULAR HGB 30.4 pG CALC (26.0-32.0); MEAN CORPUSCULAR HGB CONC 33.6 g/dL CAL (32.0-36.0); NEUT# 9.53 thou/uL (1.82-7.42); RED BLOOD COUNT 4.8 mill/uL (4.70-6.10); RED CELL DISTRI WIDTH 12.7 % (11.5-15.5)
[2020-11-07 06:09] LABS: ALBUMIN 2.7 g/dL (3.2-5.0); ALKALINE PHOSPHATASE 60 u/l (38-126); ANION GAP 11 (6-22 (CALC)); BILIRUBIN, TOTAL 0.2 mg/dL (0.0-1.4); BUN 15 mg/dL (9-20); BUN/CREATININE RATIO 22 (12-20 (CALC)); C-REACTIVE PROTEIN 1.2 mg/dL (0-0.9); CARBON DIOXIDE 23 mmol/l (22-30); CHLORIDE 103 mmol/l (95-108); CREATININE 0.7 mg/dL (0.7-1.3); GFR > 60 ML/MIN (>=60 (CALC)); GFR FOR AFR.AMER. > 60 ML/MIN (>=60 (CALC)); POTASSIUM 4.3 mmol/l (3.5-5.1); SGOT/AST 18 u/l (17-59); SODIUM 133 mmol/l (137-146); TOTAL PROTEIN 5.5 g/dL (6.3-8.2)
--- NOTE | 2020-11-07 06:13 | NUR ---
PT RESTING QUIETLY. BREATHING EVEN AND UNLABORED. NO CONCERNS VOICED AT THIS TIME. BREATHING EVEN AND UNLABORED. NO S/S OF DISTRESS NOTED. SAFETY PRECAUTIONS REMAIN IN PLACE, WILL MONITOR
--- NOTE | 2020-11-07 08:30 | NUR ---
PATIENT RESTING IN BED AT THIS TIME. PATIENT DENIES ANY PAIN OR NEEDS PATIENT REMAINS ON VAPO-THERM AND SETTING ARE; 25L/65%. PATIENT LUNG FINNEY ARE CLEAR IN UPPER FINNEY AND DIMINISHED IN LOWER FILEDS. PATIENT DENEIS SHORTNESS OF BREATH AND ENCOURAGE PATIENT TO USE INCENTIVE SPIROMETER. PATIENT HAS A NON PRODUCTIVE COUGH AT THIS TIME. ANALYST MICROBIOLOGY LAB READS FOLLOWS: SB-[id number]. SIDERAILS ARE UP X 2 CALL LIGHT IS WITHIN REACH.
--- NOTE | 2020-11-07 10:18 | NUR ---
PATIENT DENIES ANY NEEDS CURRENTLY, VAPO-THERM SETTINGS REMAIN 25L/65% AT THIS TIME. SIDERAILS ARE UP CALL LIGHT IS WITHIN REACH.
--- NOTE | 2020-11-07 12:15 | NUR ---
PATEINT SITTING UP AND EATING LUNCH AT THIS TIME. PATIENT REMAINS ON VAPO-THERM AT THIS TIME AND SETTING REMAIN UNCHANGED FROM PREVIOUS DOCUMENTATION. SPO2 AT THIS TIME IS 94%. SIDERAILS ARE UP CALL LIGHT WITHIN REACH.
--- NOTE | 2020-11-07 14:00 | NUR ---
PATIENT SITTING UP AT THIS TIME WATCHING TV ON I-PAD AT THIS TIME. PATIENT REMAINS ON VAPO-THERM AND SETTINGS ARE 25L/65% AT THIS TIME. PATIENT DENIES ANY SHORTNESS OF BREATH AND PATIENT HAS NOT HAS ANY PRODUCTIVE COUGH. PATIENT DENIES ANY PAIN SIDERAILS ARE UP CALL LIGHT IS WITHIN REACH.
--- NOTE | 2020-11-07 16:12 | NUR ---
PATIENT IN BED RESTING AND WATCHING TV AT THIS TIME. PATIENT DENEIS SHORTNESS OF BREATH AND OR PAIN AT THIS TIME. VAPO-THERM REMAINS IN PLACE AND SETTING AT 25L/65% AND SPO2 IS 94 %.
--- NOTE | 2020-11-07 17:05 | NUR ---
REPIRATORY THERAPIST IN TO SEE PATIENT AND TURNED VAPO-THERM DOWN TO 20L/65% AT THIS TIME SPO2 IS 96% AT THIS TIME.
--- NOTE | 2020-11-07 18:00 | NUR ---
PATIENT IN BED AT THIS TIME EATING DINNER. DENIES ANY PAIN OR NEEDS HR 70 SPO2 IS 97% VAPO-THERM SETTING IS 25L/65%. SIDERAILS UP X 2 CALL LIGHT WITHIN REACH.
--- NOTE | 2020-11-07 20:18 | NUR ---
PATIENT AWAKE AND ALERT. VITALS AND ASSESSMENT TAKEN AND RECOREDED. NO CONCERNS OR COMPLAINTS AT THIS TIME
[2020-11-08] VITALS (18 sets, daily range): BP systolic 106–139; BP diastolic 34–78
--- NOTE | 2020-11-08 02:13 | NUR ---
PATIENT ASLEEP. HEART RATE 49. NSB AT REST. ALL OTHER VITALS REMAIN STABLE
--- NOTE | 2020-11-08 02:51 | NUR ---
PATIENT SATING INTHE MID 80'S. RT CALLED AND HE STATED THAT MID 80'S IS FINE AND IT WASNT NESSACERY TO CHECK PATIENT
--- NOTE | 2020-11-08 06:02 | NUR ---
PATIENT IS ASLEEP. NO CONCERNS OR COMPLAINTS AT THIS TIME
[2020-11-08 06:12] LABS: HEMATOCRIT 44.3 % (39.0-50.0); HEMOGLOBIN 14.8 g/dl (14.0-18.0); IMMATURE GRANULOCYTES 3.1 % (0.0-5.0); MEAN CELL VOLUME 90.6 fL CALC (80.0-100.0); MEAN CORPUSCULAR HGB 30.3 pG CALC (26.0-32.0); MEAN CORPUSCULAR HGB CONC 33.4 g/dL CAL (32.0-36.0); NEUT# 10.04 thou/uL (1.82-7.42); RED BLOOD COUNT 4.89 mill/uL (4.70-6.10); RED CELL DISTRI WIDTH 12.8 % (11.5-15.5)
[2020-11-08 06:34] LABS: ALBUMIN 2.9 g/dL (3.2-5.0); ALKALINE PHOSPHATASE 58 u/l (38-126); ANION GAP 10 (6-22 (CALC)); BUN 17 mg/dL (9-20); BUN/CREATININE RATIO 22 (12-20 (CALC)); C-REACTIVE PROTEIN 0.6 mg/dL (0-0.9); CARBON DIOXIDE 27 mmol/l (22-30); CHLORIDE 103 mmol/l (95-108); CREATININE 0.8 mg/dL (0.7-1.3); GFR > 60 ML/MIN (>=60 (CALC)); GFR FOR AFR.AMER. > 60 ML/MIN (>=60 (CALC)); POTASSIUM 4.6 mmol/l (3.5-5.1); SGOT/AST 18 u/l (17-59); SODIUM 135 mmol/l (137-146); TOTAL PROTEIN 5.7 g/dL (6.3-8.2)
[2020-11-08 06:35] LABS: BILIRUBIN, TOTAL 0.4 mg/dL (0.0-1.4)
--- NOTE | 2020-11-08 07:15 | NUR ---
PATIENT SITTING UP IN BED AT THIS TIME. PATIENT DENEIS ANY PAIN OR COUGHING AT THIS TIME. PATIENT STATED "I FEEL MUCH MUCH BETTER TODAY". PATIENT REMAINS ON VAPO-THERM AT THIS TIME AND SETTINGS ARE: 20L/65% AND SPO2 IS CURRENTLY 95%. PATIENT STATES HE HAS HAD NO "SHORTNESS OF BREATH" AND SLEPT WELL. SMOKING PIPE DRILLER AND THREADER DONE SEE INTERVENTIONS. LUNG FIELD ASSESSED AND ARE CLEAR WITH DIMINISHED SOUND IN LOWER FINNEY. SIDERAILS ARE UP CALL LIGHT IS WITHIN REACH.
--- NOTE | 2020-11-08 08:17 | NUR ---
WEANED PARAMETERS PER PT SPO2. FROM 20 LHHFNC TO 15 L H[facility]NC. IT PT [place], WELL WEAN TO [facility]NC. NEWS COMMENTATOR TO MONITOR.
--- NOTE | 2020-11-08 09:59 | NUR ---
PATIENT SITTING UP IN BED AT THIS TIME REMAINS ON VAPO-THERM NEW SETTINGS ARE 10L/65% SPO2 IS CURRENTLY 95%. SIDERAILS ARE UP CALL LIGHT WITHIN REACH. GEOSPATIAL INFORMATION TECHNOLOGIST READING S/R AND HR IS 61 AT THIS TIME. SIDERAILS ARE UP CALL LIGHT WITHIN REACH.
--- NOTE | 2020-11-08 10:02 | NUR ---
WEANED [facility] PER PT SPO2. GEORGES WELL AT THIS TIME. WILL WEAN TO [facility] WHEN EQUIPMENT IS AVAILABLE. RESTAURANT AND BAR MANAGER TO MONITOR.
--- NOTE | 2020-11-08 12:09 | NUR ---
PATIENT SITTING UP IN BED AT THIS TIME PATIENT CONTINUES ON VAPO-THERM AT 10L/65% AT THIS TIME. BARREL FINISHER READS; S/R AT HR 67 SPO2 CURRENTLY IS 92%. SIDERAILS ARE UP CALL LIGHT IS WITHIN REACH.
--- NOTE | 2020-11-08 14:00 | NUR ---
RESPIRTORY HARMEET AND DR. OROZCO IN TO SEE PATIENT AT THIS TIME. PATIENT'S VAPO-THERM HAS BEEN DECREASED TO 5L/65% AT THIS TIME AND SPO2 IS CURRENTLY 94%. PATIENT DENEIS ANY NEEDS AND OR PAIN OR SHORTNESS OF BREATH. PATIENT STATES HE HAS NOT HAD ANY COUGH OR SHORTNESS OF BREATH. SIDERAILS ARE UP CALL LIGHT IS WITHIN REACH.
--- NOTE | 2020-11-08 15:11 | NUR ---
PATIENT INFORMED THAT IV SITE NEEDED TO BE CHANGED AND PATIENT STATE THAT HE AT THIS TIME DIDN'T WANT IT CHANGED. IV SITE IS WITHOUT SIGNS OR SYMPTOMS OF IV SITE INFECTION AND DR. OROZCO WAS INFORMED AND STATED THAT WOULD BE OK AT THIS TIME. PATIENT EDUCATED THAT IF IV SITE BECOMES HURTFULL OR RED OR SWELLING OCCURS TO LET NURSE KNOW RIGHT AWAY.
--- NOTE | 2020-11-08 15:18 | NUR ---
PER DR. ALBERTO PATIENT TO BE TRANSFERED TO PA ON TELE AND 5L OF NASAL CANNULA. MS CALLED SPOKE TO OBTAIN ROOM AT THIS TIME.
--- NOTE | 2020-11-08 15:45 | NUR ---
PATIENT RESTING IN BED AT THIS TIME. PATIENT EDUCATED ON TRANSFER TO MED SURG TO ROOM 261. PATIENT UNDERSTAND TRANSFER ORDER AND UNDERSTANDS THAT HE WILL BE ON 02 AT 5L NASAL CANNULA. PATIENT AT THIS TIME DENIES ANY SHORTNESS OF BREATH AND AGREES WITH THE TRANSFER. PATIENT'S DAUGHTER LISA INFORMED AT THIS TIME.
--- NOTE | 2020-11-08 16:01 | NUR ---
weaned to 5l nc. pt salima well. will transfer to ms.
--- NOTE | 2020-11-08 16:33 | NUR ---
REPORT RECEIVED FROM SUSANNE FRANCOIS
--- NOTE | 2020-11-08 16:54 | NUR ---
PT ARRIVED TO MED/SURG ROOM 261 IN STABLE CONDITION VIA WC ACCOMPANIED BY LISARN;PT ASSISTED TO BEDSIDE AND RESTROOM WITH A STEADY GAIT;PT A&O X3, ORIENTED TO ROOM AND CALL LIGHT SYSTEM;PT DENIES ANY CURRENT PAIN OR DISCOMFORTS,PAIN SCALE AND REPORTING EDUCATED;RESPIRATIONS EVEN AND UNLABORED ON O2 @ 5L VIA NC, CLEAR LUNG SOUNDS;ABDOMEN SOFT ON PALPATION AND ACTIVE IN ALL 4 QUADRANTS,LAST BM 11/08/20;STRONG PEDAL PULSES;SKIN INTACT;TELE MONIORING PLACED ON PT;#22G TO LFA FLUSHED AND PATENT,ABX STARTED AT THIS TIME;IV SITE CURRENTLY , PT EDUCATED ON IV SITE CHANGE AND REFUSES AT THIS TIME;ALLERGY BAND NOTED TO LEFT WRIST;PT REMAINS IN AIR/CONTACT PRECAUTIONS DUE TO COVID19 DX;PT DENIES ANY ADDITIONAL NEEDS AND IS ENCOURAGED TO CALL FOR ASSISTANCE IF NEEDED;FALL PRECAUTIONS IN PLACE WITH BED IN THE LOWEST POSITION AND CALL LIGHT IN REACH;WILL CONTINUE TO MONITOR
--- NOTE | 2020-11-08 18:15 | NUR ---
PT RESTING IN SEMI FOWLERS POSITION;RESPIRATIONS EVEN AND UNLABORED ON 02 @ 5L VIA NC;PT DENIES ANY CURRENT PAIN OR NEEDS;TELE MONITORING IN PLACE;IV SITE PATENT;PT ENCOURAGED TO CALL FOR ASSISTANCE IF NEEDED;CALL LIGHT IN REACH;WILL CONTINUE TO MONITOR
--- NOTE | 2020-11-08 19:25 | NUR ---
PHYSICAL ASSESMENT COMPLETE. PT CURRENTLY DENIES PAIN OR DISCOMFORT. SCHEDULED MEDICATIONS AND PRN MEDICATION ADMINISTERED, SEE E-MAR. PT DENIES ANY NEEDS AT THIS TIME. PLAN OF CARE REVIEWED, PT DENIES QUESTIONS, VERBALIZES UNDERSTANDING. ITEMS WITHIN REACH, BED LOCKED IN LOW POSITION W/ BEDRAILS UP X2. CALL BONILLA WITHIN REACH, AGREES TO CALL PRN.
[2020-11-09] VITALS: BP 131/81
--- NOTE | 2020-11-09 | NUR ---
PT LAYING IN BED WITH EYES CLOSED, APPEARS TO BE SLEEPING, APPEARS COMFORTABLE AND IN NO DISTRESS. RESPIRATIONS REGULAR AND UNLABORED. ITEMS REMAIN WITHIN REACH, CALL BONILLA REMAINS WITHIN REACH. BED REMAINS LOCKED AND IN LOW POSITION WITH BEDRAILS UP X2. WILL CONTINUE TO MONITOR.
[2020-11-09 04:00] VITALS: BP 118/77
--- NOTE | 2020-11-09 04:00 | NUR ---
PT RESTING IN BED, NO SIGNS OF DISTRESS NOTED, RESP EVEN AND UNLABORED. PT VOICES NO NEEDS OR COMPLAINTS AT THIS TIME. CALL LIGHT IN REACH, CONTINUE TO MONITOR.
[2020-11-09 05:33] LABS: HEMATOCRIT 42.6 % (39.0-50.0); HEMOGLOBIN 14.3 g/dl (14.0-18.0); IMMATURE GRANULOCYTES 2.2 % (0.0-5.0); MEAN CELL VOLUME 89.9 fL CALC (80.0-100.0); MEAN CORPUSCULAR HGB 30.2 pG CALC (26.0-32.0); MEAN CORPUSCULAR HGB CONC 33.6 g/dL CAL (32.0-36.0); NEUT# 10.98 thou/uL (1.82-7.42); RED BLOOD COUNT 4.74 mill/uL (4.70-6.10); RED CELL DISTRI WIDTH 12.8 % (11.5-15.5)
[2020-11-09 06:00] LABS: ALBUMIN 2.7 g/dL (3.2-5.0); ALKALINE PHOSPHATASE 55 u/l (38-126); ANION GAP 10 (6-22 (CALC)); BILIRUBIN, TOTAL 0.2 mg/dL (0.0-1.4); BUN 18 mg/dL (9-20); BUN/CREATININE RATIO 27 (12-20 (CALC)); CARBON DIOXIDE 26 mmol/l (22-30); CHLORIDE 103 mmol/l (95-108); CREATININE 0.7 mg/dL (0.7-1.3); GFR > 60 ML/MIN (>=60 (CALC)); GFR FOR AFR.AMER. > 60 ML/MIN (>=60 (CALC)); POTASSIUM 4.4 mmol/l (3.5-5.1); SGOT/AST 18 u/l (17-59); SODIUM 134 mmol/l (137-146); TOTAL PROTEIN 5.4 g/dL (6.3-8.2)
--- NOTE | 2020-11-09 07:00 | NUR ---
REVIEVED REPORT FROM SUSANNE ANGELES
[2020-11-09 08:03] VITALS: BP 110/72
--- NOTE | 2020-11-09 08:05 | NUR ---
PT RESTING IN SEMI FOWLERS POSITION. PT IS A/O X3. ASSESSMENT AND VITALS COMPLETED. BP 110/72, HR 53, O2 95% ON 2L NC. RESPIRATIONS ARE EVEN AND UNLABORED WITH NO DISTRESS NOTED. LUNG SOUNDS ARE CLEAR. HEART RHYTHM NORMAL WITH TLE EIN PLACE. BOWEL SOUNDS ARE ACTIVE. #22G LFA FLUSHED, SITE APPEARS HEALTHY AND PATENT. SKIN INTACT. PT DENIES OF ANY PAINS OR DISCOMFORTS AT THIS TIME. PT EDUCATED ON I.S/CHAIR AND PRONING. ALL SAFETY PRECAUTIONS ARE IN PLACE WITH CALL LIGHT IN REACH. ISOALTION PRECAUTIONS. WILL CONTINUE TO MONITOR.
--- NOTE | 2020-11-09 10:01 | NUR ---
O2 94% ON 2L NC. O2 REMOVED PER WALK TEST. REPSIRATIONS REMAINS EVEN AND UNLABORED. WILL CONTINUE TO MONITOR
--- NOTE | 2020-11-09 10:27 | NUR ---
WALK TEST COMPLETED. O2 94% WHILE RESTING ON ROOM AIR. O2 DECREASED TO 87% WHILE AMBULATING. O2 93% UPON RSTING BACK IN BED. RESPIRATIONS REMAINS EVEN AND UNLABORED. PT STATES HE DOES FEEL A LITTLE SOB WHILE WALKING BUT IT GETS BETTER WHEN BACK IN BED.
[2020-11-09 11:30] VITALS: BP 120/71
[2020-11-09] MEDS ORDERED: VENTOLIN HFA108 MCG IN (11:50)
[2020-11-09] MEDS ORDERED: ASPIRIN REGULA325 M1 PO (11:51)
--- NOTE | 2020-11-09 12:20 | NUR ---
PT SITTING UP ON SOFA. RESPIRATIONS ARE EVEN ANFD UNLABORED ON ROOM AIR. TELE MONITORING IN PLACE. PT DENIES OF ANY PAINS OR DISCOMFORTS AT THIS TIME. PT INFORMED OF DC WITH HOME O2. PT VERBALIZED UNDERSTANDING. ALL SAFETY PRECAUTIONS ARE IN PLACE WITH CALL LIGHT IN REACH. WILL CONTINUE TO MONITOR.
--- NOTE | 2020-11-09 14:38 | NUR ---
PT EDUCATED ON DC INSTRUCTIONS AND NEW MEDICATIONS. PT VERBLAIZED UNDERSTANDING. PT EDUCATED ON USAGE OF HOME O2. IV REMOVED WITH CATH STILL INTACT. TELE MONITORING REMOVED, ER NOTIFIED. TRANSPORTATION CALLED. WILL CONTINUE TO MONITOR.
--- NOTE | 2020-11-09 15:03 | NUR ---
Discharge instructions given. Patient verbalizes understanding of same. Discharged in stable condition via Wheelchair to Home with staff. All belongings sent with pt. PT DC HOME IN STABLE CONDITION WITH ALL PERSONAL BELONINGS, DC INSTRUCTIONS AND HOME OXYGEN.
--- NOTE | 2020-11-13 14:44 | NUR ---
Pneumonia post discharge follow up call completed today. Pt. states he is doing better each day. No fever, chills, or excessive SOB. O2 sats aaaaaaare at o5 or above without oxygen. Follow up appt with PCP is scheduled for . <edocatopm [rescrobed at doscjarge os beomg talem wotjpit yuan/ Mp qiestopms pr cpmcerms vpoced bu [atoemt. Appreciative of call.
== END 2020-11-09 15:03 | disposition home or self-care (01) | DRG 177 ==
LOC: ED 09:12 → ED-I 12:15 → ED 12:36 → ED-I 12:37 → MS2 10-31 18:11 → ICU 11-02 14:40 → MS2 11-08 16:34
PROVIDERS: Emergency Medicine; Nurse Practitioner; ADMIT Hospitalist; ATTEND Hospitalist
PROC: XW033E5 Introduction of Remdesivir Anti-infective into Peripheral Vein, Percutaneous Approach, New Technology Group 5 (ICD-10-PCS; principal; 2020-10-30)
DX: U07.1 COVID-19 (principal); J12.82 Pneumonia due to coronavirus disease 2019; J96.01 Acute respiratory failure with hypoxia; E87.1 Hypo-osmolality and hyponatremia; Z87.442 Personal history of urinary calculi
CPT/HCPCS: J1650; Q9967